=== PATIENT | female | born 1950 | race Caucasian/White ===

== ENCOUNTER → 2023-11-14 13:21 | Outpatient (REF) | payer MEDICARE, OTHER, SELFPAY ==
[2023-11-14 13:49] LABS: % Basophils 0.9 % (0-2); % Eosinophils 3.5 % (0-6); % Immature Granulocytes 1.2 % (0-0.5); % Lymphocytes 20.8 % (20.5-51.1); % Monocytes 7.6 % (1.7-9.3); Absolute Basophils 0.1 10^3/uL (0-0.2); Absolute Eosinophils 0.3 10^3/uL (0-0.7); Absolute Immature Granulocytes 0.1 10^3/uL (0-0.05); Absolute Lymphocytes 1.6 10^3/uL (1.2-3.4); Absolute Monocytes 0.6 10^3/uL (0.1-0.6); Absolute Neutrophils 5.1 10^3/uL (1.4-6.5); Hematocrit 27.6 % (37.0-47.0); Hemoglobin 7.7 g/dL (12.0-16.0); Mean Corp Hgb Conc. 27.9 g/dL (33.0-37.0); Mean Corpuscular Hgb 20.1 pg (27.0-31.0); Mean Corpuscular Volume 71.9 fL (81.0-99.0); Nucleated Red Blood Cells % 0 %; Platelet Count 252 10^3/uL (130-400); Red Blood Cell Count 3.84 10^6/uL (4.20-5.40); Red Cell Dist. Width 18.7 % (11.5-14.5); White Blood Cell Count 7.7 10^3/uL (4.8-10.8)
[2023-11-14 14:48] LABS: ALT (SGPT) 14 U/L (0-35); AST (SGOT) 20 U/L (14-36); Albumin 3.5 g/dl (3.5-5.0); Alkaline Phosphatase 108 U/L (38-126); Blood Urea Nitrogen 17 mg/dl (7-17); Calcium 8.2 mg/dl (8.4-10.2); Carbon Dioxide 24 mmol/L (22-30); Chloride 105 mmol/L (98-107); Glucose 94 mg/dl (70-99); Potassium 4.5 mmol/L (3.5-5.1); Sodium 136 mmol/L (135-145); Total Bilirubin 0.4 mg/dl (0.2-1.3); Total Protein 6.3 g/dl (6.3-8.2); eGFR > 60.00
== END ==
LOC: OLABN 13:21
PROVIDERS: ATTENDING PHYSICIAN Student in an Organized Health Care Education/Training Program
DX: R60.0 Localized edema (principal)
CPT/HCPCS: 36415; 80053; 85025

== ENCOUNTER → 2023-11-17 10:17 | Outpatient (REF) | payer MEDICARE, OTHER, SELFPAY ==
[2023-11-17 11:56] LABS: Total Iron Binding Capacity 430 ug/dl (265-497)
[2023-11-17 12:25] LABS: Ferritin 6.1 ng/ml (11.1-264.0)
[2023-11-17 12:39] LABS: Vitamin B12 251 pg/ml (239-931)
== END ==
LOC: OLABN 10:17
PROVIDERS: ATTENDING PHYSICIAN Student in an Organized Health Care Education/Training Program
DX: N95.0 Postmenopausal bleeding (principal); R60.0 Localized edema; D53.9 Nutritional anemia, unspecified
CPT/HCPCS: 36415; 82607; 82728; 83550

== ENCOUNTER → 2023-11-22 11:45 | Outpatient (REF) | payer MEDICARE, OTHER, SELFPAY ==
[2023-11-22 13:00] LABS: % Eosinophils 3.6 % (0-6); % Immature Granulocytes 1.5 % (0-0.5); % Lymphocytes 19.8 % (20.5-51.1); % Monocytes 7.3 % (1.7-9.3); % Neutrophils 66.8 % (42.2-75.2); Absolute Basophils 0.1 10^3/uL (0-0.2); Absolute Eosinophils 0.3 10^3/uL (0-0.7); Absolute Immature Granulocytes 0.1 10^3/uL (0-0.05); Absolute Lymphocytes 1.6 10^3/uL (1.2-3.4); Absolute Monocytes 0.6 10^3/uL (0.1-0.6); Absolute Neutrophils 5.5 10^3/uL (1.4-6.5); Hematocrit 27.1 % (37.0-47.0); Hemoglobin 7.6 g/dL (12.0-16.0); Mean Corpuscular Hgb 20.2 pg (27.0-31.0); Mean Corpuscular Volume 72.1 fL (81.0-99.0); Mean Platelet Volume 10.8 fL (7.4-10.4); Nucleated Red Blood Cells % 0 %; Platelet Count 285 10^3/uL (130-400); Red Blood Cell Count 3.76 10^6/uL (4.20-5.40); Red Cell Dist. Width 19.1 % (11.5-14.5); White Blood Cell Count 8.3 10^3/uL (4.8-10.8)
[2023-11-22 13:49] LABS: Normal RBC Morphology No
[2023-11-22 13:50] LABS: Anisocytosis 1+; Hypochromasia 2+; Polychromasia 1+
[2023-11-22 13:51] LABS: Acanthocytes 1+; Ovalocytes 1+; Tear Drop Red Blood Cells 1+
== END ==
LOC: OLABN 11:45
PROVIDERS: ATTENDING PHYSICIAN Student in an Organized Health Care Education/Training Program
DX: R60.0 Localized edema (principal)
CPT/HCPCS: 36415; 85025

== ENCOUNTER → 2023-11-30 10:43 | Outpatient (REF) | payer MEDICARE, OTHER, SELFPAY ==
[2023-11-30 11:19] LABS: Blood Urea Nitrogen 14 mg/dl (7-17); Calcium 8.4 mg/dl (8.4-10.2); Carbon Dioxide 25 mmol/L (22-30); Chloride 105 mmol/L (98-107); Glucose 96 mg/dl (70-99); HDL Cholesterol 27 mg/dl; LDL Cholesterol, Calculated 89 mg/dl; Potassium 4.3 mmol/L (3.5-5.1); Sodium 137 mmol/L (135-145); Total Cholesterol 155 mg/dl (50-199); Triglyceride 197 mg/dl (10-149); Very Low Density Lipoprotein 39 mg/dl (0-30); eGFR > 60.00
== END ==
LOC: OLABN 10:43
PROVIDERS: ATTENDING PHYSICIAN Student in an Organized Health Care Education/Training Program
DX: M15.0 Primary generalized (osteo)arthritis (principal); E78.5 Hyperlipidemia, unspecified
CPT/HCPCS: 36415; 80048; 80061

== ENCOUNTER → 2024-02-16 09:15 | Outpatient (REF) | payer MEDICARE, OTHER, SELFPAY ==
[2024-02-16 10:18] LABS: Blood Urea Nitrogen 12 mg/dl (7-17); Calcium 8.8 mg/dl (8.4-10.2); Carbon Dioxide 24 mmol/L (22-30); Chloride 107 mmol/L (98-107); Glucose 100 mg/dl (70-99); Potassium 4.5 mmol/L (3.5-5.1); Sodium 140 mmol/L (135-145); eGFR > 60.00
== END ==
LOC: OLABN 09:15
PROVIDERS: ATTENDING PHYSICIAN Student in an Organized Health Care Education/Training Program
DX: C54.1 Malignant neoplasm of endometrium (principal)
CPT/HCPCS: 36415; 80048

== ENCOUNTER → 2024-10-02 10:00 | Outpatient (REF) | payer MEDICARE, OTHER, SELFPAY ==
[2024-10-02 12:26] LABS: ALT (SGPT) 13 U/L (0-35); AST (SGOT) 17 U/L (14-36); Albumin 3.5 g/dl (3.5-5.0); Alkaline Phosphatase 110 U/L (38-126); Blood Urea Nitrogen 13 mg/dl (7-17); Calcium 8.4 mg/dl (8.4-10.2); Carbon Dioxide 24 mmol/L (22-30); Chloride 105 mmol/L (98-107); Glucose 104 mg/dl (70-99); Potassium 4.5 mmol/L (3.5-5.1); Sodium 138 mmol/L (135-145); Total Bilirubin 0.3 mg/dl (0.2-1.3); Total Protein 6.2 g/dl (6.3-8.2); eGFR > 60.00
== END ==
LOC: OLABN 10:00
PROVIDERS: ATTENDING PHYSICIAN Student in an Organized Health Care Education/Training Program
DX: C54.1 Malignant neoplasm of endometrium (principal)
CPT/HCPCS: 36415; 80053

== ENCOUNTER → 2024-10-10 08:05 | Outpatient (REF) | payer MEDICARE, OTHER, SELFPAY | LOC: RAD 08:05 | PROVIDERS: ATTENDING PHYSICIAN Student in an Organized Health Care Education/Training Program | DX: C54.1 Malignant neoplasm of endometrium (principal) | CPT/HCPCS: 74177; Q9967 ==

== ENCOUNTER → 2024-10-21 13:14 | Outpatient (REF) | payer MEDICARE, OTHER, SELFPAY ==
[2024-10-21 15:14] LABS: Blood Urea Nitrogen 17 mg/dl (7-17); Calcium 8.7 mg/dl (8.4-10.2); Carbon Dioxide 21 mmol/L (22-30); Chloride 104 mmol/L (98-107); Glucose 93 mg/dl (70-99); Potassium 4.6 mmol/L (3.5-5.1); Sodium 136 mmol/L (135-145); eGFR > 60.00
== END ==
LOC: OLABN 13:14
PROVIDERS: ATTENDING PHYSICIAN Student in an Organized Health Care Education/Training Program
DX: C54.1 Malignant neoplasm of endometrium (principal)
CPT/HCPCS: 36415; 80048

== ENCOUNTER → 2025-02-10 09:44 | Outpatient (REF) | payer MEDICARE, OTHER, SELFPAY ==
[2025-02-10 10:43] LABS: HDL Cholesterol 23 mg/dl; LDL Cholesterol, Calculated 79 mg/dl; Total Cholesterol 142 mg/dl (50-199); Triglyceride 203 mg/dl (10-149); Very Low Density Lipoprotein 40 mg/dl (0-30)
== END ==
LOC: OLABN 09:44
PROVIDERS: ATTENDING PHYSICIAN Student in an Organized Health Care Education/Training Program
DX: E66.9 Obesity, unspecified (principal)
CPT/HCPCS: 36415; 80061

== ENCOUNTER 2025-02-11 00:14 | Emergency (ER) | payer MEDICARE, OTHER, SELFPAY ==
[2025-02-11] VITALS (8 sets, daily range): BP systolic 113–138; BP diastolic 41–64; BMI 48.9
[2025-02-11 00:19] LABS: Glucose - Point of Care 118 mg/dl (70-99)
[2025-02-11 00:56] LABS: % Basophils 0.8 % (0-2); % Eosinophils 3.4 % (0-6); % Immature Granulocytes 1.4 % (0-0.5); % Lymphocytes 12.4 % (20.5-51.1); % Monocytes 6.1 % (1.7-9.3); % Neutrophils 75.9 % (42.2-75.2); Absolute Basophils 0.1 10^3/uL (0-0.2); Absolute Eosinophils 0.3 10^3/uL (0-0.7); Absolute Immature Granulocytes 0.1 10^3/uL (0-0.05); Absolute Monocytes 0.5 10^3/uL (0.1-0.6); Hematocrit 34.9 % (37.0-47.0); Hemoglobin 11.1 g/dL (12.0-16.0); Mean Corp Hgb Conc. 31.8 g/dL (33.0-37.0); Mean Corpuscular Hgb 27.4 pg (27.0-31.0); Mean Corpuscular Volume 86.2 fL (81.0-99.0); Mean Platelet Volume 10.2 fL (7.4-10.4); Nucleated Red Blood Cells % 0 %; Platelet Count 192 10^3/uL (130-400); Red Blood Cell Count 4.05 10^6/uL (4.20-5.40); Red Cell Dist. Width 16.8 % (11.5-14.5); White Blood Cell Count 7.9 10^3/uL (4.8-10.8)
[2025-02-11 01:02] LABS: ALT (SGPT) 18 U/L (0-35); AST (SGOT) 18 U/L (14-36); Alkaline Phosphatase 97 U/L (38-126); Blood Urea Nitrogen 18 mg/dl (7-17); Carbon Dioxide 24 mmol/L (22-30); Chloride 110 mmol/L (98-107); Estimated Creatinine Clearance 102 ml/min; Glucose 114 mg/dl (70-99); Potassium 4.1 mmol/L (3.5-5.1); Sodium 142 mmol/L (135-145); Total Bilirubin 0.4 mg/dl (0.2-1.3); Total Protein 7.1 g/dl (6.3-8.2); eGFR > 60.00
--- NOTE | 2025-02-11 01:49 | ED.GENMED ---
History of Present Illness
General
Chief Complaint: Numbness
Source: patient, records, ambulance crew and senior care records
Exam Limitations: none
Time Seen by Provider: 02/11/25 01:35
Nursing documentation reviewed up to this point in time: agreed with
History of Present Illness
History of Present Illness:
74-year-old female with history as noted presents to the emergency room from [facility] for evaluation of leg pain. Patient describes pain in both legs right somewhat greater than left. She says this is chronic pain that has been ongoing for
years but tonight was not manageable�per paperwork from senior care she initially was declining her usual gabapentin because she says that it does not work. She describes the pain as '[id number]' and 'stabbing.' She has tingling in her legs
but really in all of her extremities�paperwork from senior care noted left arm tingling but patient says this has been going on for years off and on. No weakness in her extremities.In addition to her main concern which is her leg pain she also
reports pain essentially in the rest of her body�back, arms, torso. She does carry diagnosis of polyneuropathy per senior care paperwork. She also has a diagnosis of restless leg syndrome.
Past History
Past History
ED Past Medical History: HTN, Hypercholesterolemia and Psychiatric (Depression, anxiety)
ED Past Surgical History: Tonsilectomy
Social History
Tobacco: Former smoker
Alcohol: None
Personal: Single
Living: alone
Employment: Not employed
Family History
Family History: Negative Sudden
Review of Systems
Review of Systems
All Other Systems: ROS reviewed and negative except as documented in HPI and ROS
Respiratory: Denies trouble breathing
Cardiac: Denies chest pain
ABD/GI: Denies abdominal pain
Musculoskeletal: Reports muscle pain, edema (Chronic), neck pain and back pain
Neurological: Reports other (Paresthesias); Denies weakness or numbness
Phy Exam
Physical Exam
Physical Exam:
General: Awake, alert, no acute distress
Head: Normocephalic, atraumatic
Eyes: Conjunctiva normal
Throat: Airway intact, handling secretions
Neck: Trachea midline, supple without meningismus
Lungs: Clear to auscultation bilaterally, no wheezing, rales, rhonchi
Heart: Regular rate and rhythm, no murmurs, gallops, or rubs
Abd: Soft, non distended, nontender
Neuro: Cranial nerves grossly intact, speech fluid; motor and sensory intact and symmetric upper and lower extremities
Extremities: Patient has bilateral lower extremity edema symmetric; she does have good pulses throughout the extremities; she has no calf tenderness, no erythema or warmth of the legs
Scores
Heart Failure Risk
Heart Failure Risk Score: Not Applicable
Heart Score for Chest Pain Patients
STEMI patient?: Not applicable
Withdrawal Assessment of Alcohol
Withdrawal Assessment Completed?: Not applicable
Course
Orders/Labs/Results
Orders:
Orders
02/11/25 00:23
EKG [Electrocardiogram (*1)] Urgent
Reason for Study: Fatigue / Weakness
02/11/25 00:24
EKG- Treatment ONCE
02/11/25 00:40
Complete Blood Count/With Diff Urgent
Comprehensive Metabolic Panel Urgent
Creatine Phosphokinase Urgent
Comment: ADD ON
02/11/25 01:47
Ketorolac [Toradol] 15 mg IV NOW STA
US Periph Venous LOWER Ext Refugio Urgent
Comment:
Reason For Exam: bilateral leg pain
02/11/25 01:50
Add On- LAB Urgent
Tests Added?: CPK
Abnormal Lab Results
02/11/25 02/11/25
00:17 00:40
RBC 4.05 L 10^6/uL
(4.20-5.40)
Hgb 11.1 L g/dL
(12.0-16.0)
Hct 34.9 L %
(37.0-47.0)
MCHC 31.8 L g/dL
(33.0-37.0)
RDW 16.8 H %
(11.5-14.5)
Abs Immat Gran (auto) 0.1 H 10^3/uL
(0-0.05)
Absolute Lymphs (auto) 1.0 L 10^3/uL
(1.2-3.4)
Immature Gran % 1.4 H %
(0-0.5)
Neutrophils % 75.9 H %
(42.2-75.2)
Lymphocytes % 12.4 L %
(20.5-51.1)
Chloride 110 H mmol/L
(98-107)
BUN 18 H mg/dl
(7-17)
Glucose 114 H mg/dl
(70-99)
POC Glucose 118 H mg/dl
(70-99)
02/11/25 00:40
02/11/25 00:40
Vital Signs
Initial and Last Documented VS:
Initial Vital Signs
Temp Pulse Resp BP Pulse Ox
36.8 C 75 18 138/64 95
02/11/25 00:19 02/11/25 00:19 02/11/25 00:19 02/11/25 00:19 02/11/25 00:19
Last Documented Vital Signs
Temp Pulse Resp BP Pulse Ox
36.8 C 91 17 120/47 96
02/11/25 00:19 02/11/25 02:45 02/11/25 02:00 02/11/25 02:00 02/11/25 02:45
MDM/Problems Addressed
Differential Diagnosis Includes:
Neuropathic pain, DVTs, no signs of vascular compromise on exam to suggest claudication or arterial occlusion, no fever or erythema to suggest cellulitis
MDM/Problems Addressed:
74-year-old female presents with acute on chronic pain in her legs, paresthesias and generalized myalgias. Not well-controlled with her normal gabapentin and NSAIDs tonight. Vitals and exam as above. Labs sent off including a CBC and a CMP which
showed no clinically significant abnormalities. Will check ultrasound of the legs to rule out DVT given history of obesity which increases risk. Will treat with Toradol. Reassess after the above.
Labs reviewed: CBC and CMP no clinically significant abnormalities. CPK normal. Ultrasound of the legs negative for DVT bilaterally. Suspect her pain is neuropathic. Stable for discharge�I had a long discussion with the patient I explained that
she needs to discuss control of her chronic pain with her primary care physician; in my judgment it would be inappropriate to prescribe opiates out of the emergency room for this issue.
Chronic conditions affecting care:
Obesity, polyneuropathy
*Radiology
Radiology exam reviewed: radiology read reviewed
*Pulse Oximetry
Patient hypoxic: no
*EKG
Interpreted by ED Provider?: Yes
Heart Rate: 93
Rate: normal
Rhythm: sinus
Allison: normal axis
Interval: first degree heart block
QRS Pattern: low voltage
Ischemia: no ischemia
*Critical Care Note
Total Time (30-74mins, 75-104mins- exclusive of procedures): Not Applicable
Data Reviewed
Review of Other/Old Records Reveals: Labs and Records
Source: patient, ambulance crew and senior care records
ED Attending Note
-
Portions of this chart may have been created with voice recognition software.� Occasional wrong word or��sound alike� substitutions may have occurred due to the inherent limitations of voice recognition software.
Discharge Plan
Departure
Patient Disposition: Home (Routine Discharge)
Date of Disposition: 02/11/25
Time of Disposition: 03:06
Patient with high blood pressure during this ER visit?: No
Discharge Problem:
Bilateral leg and foot pain
Instructions: Peripheral Neuropathy (DC)
Prescriptions:
No Action
gabapentin 600 mg Tablet
600 mg PO TID
atorvastatin 10 mg Tablet
10 mg PO DAILY
sertraline 100 mg Tablet
200 mg PO DAILY
acetaminophen 500 mg Tablet
1,000 mg PO BID
magnesium hydroxide [Milk of Magnesia] 400 mg/5 mL Suspension
15 ml PO HS PRN (Reason: constipation)
bisacodyl 10 mg Suppository
10 mg MO DAILY PRN (Reason: constipation)
ropinirole 2 mg Tablet
2 mg PO HS
risperidone 1 mg Tablet
1 mg PO HS
risperidone 0.5 mg Tablet
0.5 mg PO DAILY
diclofenac sodium [Voltaren] 1 % Gel
2 g TOPICAL PRN PRN (Reason: pain)
Preparation H 0.25-14-74.9 % Ointment
1 applic MO [facility] PRN (Reason: hemorrhoids)
Referrals:
Leif Shepard DO [Family Provider] - Follow up in 2-3 days
Activity Restrictions/Additional Instructions:
Thank you for visiting the Emergency Department at [facility].
1. Please schedule a follow up appointment as directed. Call first thing tomorrow morning to make an appointment.
2. If indicated, please take your medications as instructed and indicated on discharge paperwork.
3. If any of your symptoms do not improve, or persist, or become more severe within 6-12 hours, please return to the emergency department for further care.
4. Please return to the emergency department if you develop a headache, neck pain/stiffness, fever greater than 100.4F, chest pain, shortness of breath, persistent nausea, vomiting, slurred speech, difficulty walking, numbness/tingling, weakness,
signs of infection or any other symptoms that are worrisome to you.
Please call [phone] if you have any questions.
Interventions
Interventions:
*Risk Screen - Suicide Last Done: 02/11/25 00:31
*General Assessment Last Done: 02/11/25 00:31
*Neglect/Abuse Screening Last Done: 02/11/25 00:31
*ED- Fall Risk Assessment Last Done: 02/11/25 00:31
*ED COVID-19 Vaccine History Last Done: 02/11/25 00:31
ED- Neurological Assessment Last Done: 02/11/25 00:48
Discharge Date and Time
Print Language: STATELESS
[2025-02-11] MEDS: TORADOL 15 MG IV (02:01)
[2025-02-11 02:30] LABS: Creatine Phosphokinase 39 U/L (30-135)
== END 2025-02-11 06:21 | disposition home or self-care (01) ==
LOC: EMR 00:14
PROVIDERS: Emergency Medicine; EMERGENCY PHYSICIAN Emergency Medicine; FAMILY PHYSICIAN Student in an Organized Health Care Education/Training Program
DX: M79.605 Pain in left leg (principal); M79.604 Pain in right leg; M79.672 Pain in left foot; M79.671 Pain in right foot; G62.9 Polyneuropathy, unspecified; Z87.891 Personal history of nicotine dependence; E66.9 Obesity, unspecified; Z68.42 Body mass index [BMI] 45.0-49.9, adult
CPT/HCPCS: 99285; 96374; 80053; 82550; 82962; 85025; 93005; 93970

== ENCOUNTER → 2025-09-05 09:22 | Outpatient (REF) | payer MEDICARE, OTHER, SELFPAY ==
[2025-09-05 11:43] LABS: ALT (SGPT) 18 U/L (0-35); AST (SGOT) 19 U/L (14-36); Albumin 3.4 g/dl (3.5-5.0); Alkaline Phosphatase 112 U/L (38-126); Blood Urea Nitrogen 17 mg/dl (7-17); Calcium 8.4 mg/dl (8.4-10.2); Carbon Dioxide 21 mmol/L (22-30); Chloride 108 mmol/L (98-107); Glucose 104 mg/dl (70-99); Potassium 4.1 mmol/L (3.5-5.1); Sodium 137 mmol/L (135-145); Total Protein 6.2 g/dl (6.3-8.2); eGFR > 60.00
== END ==
LOC: OLABN 09:22
PROVIDERS: ATTENDING PHYSICIAN Student in an Organized Health Care Education/Training Program
DX: C54.1 Malignant neoplasm of endometrium (principal)
CPT/HCPCS: 36415; 80053

== ENCOUNTER → 2025-09-09 11:49 | Outpatient (REF) | payer MEDICARE, OTHER, SELFPAY ==
[2025-09-09 13:01] LABS: ALT (SGPT) 22 U/L (0-35); AST (SGOT) 23 U/L (14-36); Albumin 4.3 g/dl (3.5-5.0); Alkaline Phosphatase 124 U/L (38-126); Blood Urea Nitrogen 14 mg/dl (7-17); Calcium 9.2 mg/dl (8.4-10.2); Carbon Dioxide 24 mmol/L (22-30); Chloride 103 mmol/L (98-107); Glucose 94 mg/dl (70-99); Potassium 4.0 mmol/L (3.5-5.1); Sodium 137 mmol/L (135-145); Total Protein 7.5 g/dl (6.3-8.2); eGFR > 60.00
== END ==
LOC: REG 11:49
PROVIDERS: ATTENDING PHYSICIAN Student in an Organized Health Care Education/Training Program
DX: C54.1 Malignant neoplasm of endometrium (principal)
CPT/HCPCS: 36415; 71260; 74177; 80053; Q9967